=== PATIENT | male | born 1990 | race Caucasian/White ===

== ENCOUNTER 2019-02-08 20:12 | Emergency (ER) | payer BC ==
[2019-02-08 21:18] VITALS: BP 119/57
--- NOTE | 2019-02-08 22:13 | UC ---
General HPI - HPI Summary HPI Summary: pt punched his vehicle last pm then got the same hand shut in a door. he heard it crack. - History of Current Complaint Chief Complaint: UCUpperExtremity Stated Complaint: RIGHT HAND INJURY Time Seen by Provider: 02/08/19 21:56 Hx Obtained From: Patient Pain Intensity: 5 Associated Signs & Symptoms: Positive: Edema. Negative: Fever, Weakness - Allergy/Home Medications Allergies/Adverse Reactions: Allergies Allergy/AdvReac Type Severity Reaction Status Date / Time No Known Allergies Allergy Verified 02/08/19 21:12 Home Medications: Home Medications Ibuprofen TAB* [Advil TAB*] 600 mg PO Q6H PRN 02/08/19 [History Confirmed ] PMH/Surg Hx/FS Hx/Imm Hx Previously Healthy: Yes - Surgical History Surgical History: Yes Surgery Procedure, Year, and Place: hernia repair - Family History Known Family History: Positive: Non-Contributory - Social History Alcohol Use: Daily Substance Use Type: Marijuana Smoking Status (MU): Never Smoked Tobacco Review of Systems All Other Systems Reviewed And Are Negative: No Constitutional: Negative: Fever Skin: Negative: Rash Musculoskeletal: Negative: Decreased ROM Neurological: Negative: Weakness, Paresthesia, Numbness Physical Exam Triage Information Reviewed: Yes Appearance: Well-Appearing Vital Signs: Initial Vital Signs Temp 98.7 F 02/08/19 21:14 Pulse 86 02/08/19 21:14 Resp 16 02/08/19 21:14 BP 119/57 02/08/19 21:14 Pulse Ox 98 02/08/19 21:14 Vital Signs Reviewed: Yes Cardiovascular: Positive: RRR Musculoskeletal: Positive: Other: - RUE: shoulder, elbow, wrist are without deformity or tenderness. Dorsal hand is swollen and tender. fingers have full s/ v/m function. Neurological: Positive: Alert Psychological: Positive: Age Appropriate Behavior Skin Exam: Normal Skin: Negative: Rashes Diagnostics - Radiology No standard instances Radiology Interpretation Completed By: ED Physician - R hand=fx 5th metacarpal Course/Dx - Course Course Of Treatment: procedure: volar fiberglass splint to hand and wrist, held with seferino wrap. above and below fx stabilized. finger tips had s/v function pre and post splint. - Diagnoses Provider Diagnosis: Boxers fracture Discharge ED - Sign-Out/Discharge Documenting (check all that apply): Patient Departure All imaging exams completed and their final reports reviewed: No - Discharge Plan Condition: Stable Disposition: HOME Patient Education Materials: Hand Fracture (ED), Splint Care (ED) Referrals: Robinson Al MD [Medical Doctor] - As Soon As Possible - Billing Disposition and Condition Condition: STABLE Disposition: Home
--- NOTE | 2019-02-09 10:40 | UC ---
- Progress Note Progress Note: Final radiologist reading of right hand x-rays from February 08, 2019 is fifth metacarpal fracture. Provider interpretation from the same date is the same therefore there is no discrepancy. Course/Dx - Diagnoses Provider Diagnoses: Boxers fracture Discharge ED - Sign-Out/Discharge Documenting (check all that apply): Patient Departure All imaging exams completed and their final reports reviewed: Yes - Discharge Plan Condition: Stable Disposition: HOME Patient Education Materials: Hand Fracture (ED), Splint Care (ED) Referrals: Robinson Al MD [Medical Doctor] - As Soon As Possible - Billing Disposition and Condition Condition: STABLE Disposition: Home
== END 2019-02-08 22:21 | disposition home or self-care (01) ==
LOC: UCCORT 20:12
DX: S62.396A Other fracture of fifth metacarpal bone, right hand, initial encounter for closed fracture (principal); W22.09XA Striking against other stationary object, initial encounter; Y93.89 Activity, other specified; Y92.9 Unspecified place or not applicable; W23.0XXA Caught, crushed, jammed, or pinched between moving objects, initial encounter
CPT/HCPCS: 99201; G0463